=== PATIENT | female | born 1980 | race Two or more races ===

== ENCOUNTER 2018-10-04 15:10 | Emergency (ER) | payer MEDICAID ==
[~2018-10-04] VITALS: Ht 160 cm; Wt 97.7 kg
[2018-10-04 15:12] VITALS: Ht 160 cm; Wt 97.7 kg
[2018-10-04 18:19] VITALS: BP 118/73
== END 2018-10-04 18:19 | disposition home or self-care (01) ==
LOC: D.ER 15:10
DX: S63.610A Unspecified sprain of right index finger, initial encounter (principal); W18.30XA Fall on same level, unspecified, initial encounter; Y93.89 Activity, other specified; Y92.019 Unspecified place in single-family (private) house as the place of occurrence of the external cause

== ENCOUNTER 2019-05-31 11:32 | Emergency (ER) | payer MEDICAID ==
[~2019-05-31] VITALS: Ht 160 cm; Wt 95.9 kg
[2019-05-31 11:38] VITALS: Ht 160 cm; Wt 95.9 kg
[2019-05-31 13:15] VITALS: BP 111/78
[2019-05-31] MEDS ORDERED: TORADOL10 MG PO (13:16)
== END 2019-05-31 14:03 | disposition home or self-care (01) ==
LOC: D.ER 11:32
DX: S99.821A Other specified injuries of right foot, initial encounter (principal); X58.XXXA Exposure to other specified factors, initial encounter